=== PATIENT | female | born 1945 | race Asian ===

== ENCOUNTER 2016-10-05 11:24 | Outpatient (CLI) | payer OTHER | END 2016-10-05 19:30 | disposition home or self-care (01) | LOC: LABW 11:24 | DX: I48.1 Persistent atrial fibrillation (principal); Z79.01 Long term (current) use of anticoagulants; Z51.81 Encounter for therapeutic drug level monitoring | CPT/HCPCS: 36415; 85610 ==

== ENCOUNTER 2016-11-07 15:02 | Outpatient (CLI) | payer OTHER | END 2016-11-07 20:18 | disposition home or self-care (01) | LOC: LABW 15:02 | DX: I11.0 Hypertensive heart disease with heart failure (principal); I48.1 Persistent atrial fibrillation; Z79.01 Long term (current) use of anticoagulants; Z51.81 Encounter for therapeutic drug level monitoring | CPT/HCPCS: 36415; 83880; 85610 ==

== ENCOUNTER 2016-12-05 10:02 | Outpatient (CLI) | payer OTHER | END 2016-12-05 19:20 | disposition home or self-care (01) | LOC: LABW 10:02 | DX: I48.1 Persistent atrial fibrillation (principal); Z79.01 Long term (current) use of anticoagulants; Z51.81 Encounter for therapeutic drug level monitoring | CPT/HCPCS: 36415; 85610 ==

== ENCOUNTER 2017-01-04 11:13 | Outpatient (CLI) | payer OTHER | END 2017-01-04 19:06 | disposition home or self-care (01) | LOC: LABW 11:13 | DX: Z79.01 Long term (current) use of anticoagulants (principal); Z51.81 Encounter for therapeutic drug level monitoring; I48.1 Persistent atrial fibrillation | CPT/HCPCS: 36415; 85610 ==

== ENCOUNTER 2017-04-12 08:44 | Outpatient (CLI) | payer OTHER | END 2017-04-12 09:45 | disposition home or self-care (01) | LOC: LABW 08:44 | DX: Z79.01 Long term (current) use of anticoagulants (principal); I48.1 Persistent atrial fibrillation; Z51.81 Encounter for therapeutic drug level monitoring | CPT/HCPCS: 36415; 85610 ==

== ENCOUNTER 2017-05-10 08:55 | Outpatient (CLI) | payer OTHER | END 2017-05-10 10:00 | disposition home or self-care (01) | LOC: LABW 08:55 | DX: I48.1 Persistent atrial fibrillation (principal); Z79.01 Long term (current) use of anticoagulants; Z51.81 Encounter for therapeutic drug level monitoring | CPT/HCPCS: 36415; 85610 ==

== ENCOUNTER 2017-06-14 10:53 | Outpatient (CLI) | payer OTHER | END 2017-06-14 19:07 | disposition home or self-care (01) | LOC: LABW 10:53 | DX: I48.1 Persistent atrial fibrillation (principal); Z79.01 Long term (current) use of anticoagulants; Z51.81 Encounter for therapeutic drug level monitoring | CPT/HCPCS: 36415; 85610 ==

== ENCOUNTER 2017-07-12 09:09 | Outpatient (CLI) | payer OTHER | END 2017-07-12 10:10 | disposition home or self-care (01) | LOC: LABW 09:09 | DX: I48.1 Persistent atrial fibrillation (principal); Z79.01 Long term (current) use of anticoagulants; Z51.81 Encounter for therapeutic drug level monitoring | CPT/HCPCS: 36415; 85610 ==

== ENCOUNTER 2017-08-15 11:02 | Outpatient (CLI) | payer OTHER | END 2017-08-15 19:10 | disposition home or self-care (01) | LOC: LABW 11:02 | DX: I48.1 Persistent atrial fibrillation (principal); Z79.01 Long term (current) use of anticoagulants; Z51.81 Encounter for therapeutic drug level monitoring | CPT/HCPCS: 36415; 85610 ==

== ENCOUNTER 2017-09-13 11:03 | Outpatient (CLI) | payer OTHER | END 2017-09-13 19:04 | disposition home or self-care (01) | LOC: LABW 11:03 | DX: I48.1 Persistent atrial fibrillation (principal); Z79.01 Long term (current) use of anticoagulants; Z51.81 Encounter for therapeutic drug level monitoring | CPT/HCPCS: 36415; 85610 ==

== ENCOUNTER → 2017-10-11 10:38 | Outpatient (CLI) | payer OTHER | END | disposition home or self-care (01) | LOC: LABW 10:38 | DX: I48.91 Unspecified atrial fibrillation (principal) | CPT/HCPCS: 36415; 85610 ==

== ENCOUNTER 2017-11-15 10:37 | Outpatient (CLI) | payer OTHER | END 2017-11-15 21:40 | disposition home or self-care (01) | LOC: LABW 10:37 | DX: I48.91 Unspecified atrial fibrillation (principal) | CPT/HCPCS: 36415; 85610 ==

== ENCOUNTER 2017-12-13 10:47 | Outpatient (CLI) | payer OTHER | END 2017-12-13 18:12 | disposition home or self-care (01) | LOC: LABW 10:47 | DX: I48.91 Unspecified atrial fibrillation (principal) | CPT/HCPCS: 36415; 85610 ==

== ENCOUNTER 2018-01-10 09:36 | Outpatient (CLI) | payer OTHER | END 2018-01-10 21:46 | disposition home or self-care (01) | LOC: LABW 09:36 | DX: I48.91 Unspecified atrial fibrillation (principal) | CPT/HCPCS: 36415; 85610 ==

== ENCOUNTER 2018-02-07 10:12 | Outpatient (CLI) | payer OTHER | END 2018-02-07 20:32 | disposition home or self-care (01) | LOC: US 10:12 | DX: I48.91 Unspecified atrial fibrillation (principal); S86.891A Other injury of other muscle(s) and tendon(s) at lower leg level, right leg, initial encounter | CPT/HCPCS: 36415; 85610 ==

== ENCOUNTER 2018-05-01 09:07 | Outpatient (CLI) | payer OTHER | END 2018-05-01 19:58 | disposition home or self-care (01) | LOC: MAMMO 09:07 | DX: Z12.31 Encounter for screening mammogram for malignant neoplasm of breast (principal) ==

== ENCOUNTER 2018-06-05 08:36 | Outpatient (CLI) | payer OTHER ==
[2018-06-05 09:28] LABS: PLATELET COUNT 221 K/uL (152-353)
[2018-06-05 09:50] LABS: POTASSIUM 3.9 mmol/L (3.6-5.2)
== END 2018-06-05 22:25 | disposition home or self-care (01) ==
LOC: LABW 08:36
PROVIDERS: Nurse Practitioner
DX: Z11.59 Encounter for screening for other viral diseases (principal); I10 Essential (primary) hypertension; E78.00 Pure hypercholesterolemia, unspecified; E53.8 Deficiency of other specified B group vitamins; R53.83 Other fatigue
CPT/HCPCS: 36415; 80053; 80061; 82306; 82607; 84443; 85027; 86803

== ENCOUNTER 2018-07-11 09:00 | Outpatient (CLI) | payer OTHER | END 2018-07-11 20:56 | disposition home or self-care (01) | LOC: LABW 09:00 | DX: I48.91 Unspecified atrial fibrillation (principal) | CPT/HCPCS: 36415; 85610 ==

== ENCOUNTER 2018-08-06 08:54 | Outpatient (CLI) | payer OTHER | END 2018-08-06 19:42 | disposition home or self-care (01) | LOC: LABW 08:54 | DX: I48.91 Unspecified atrial fibrillation (principal) | CPT/HCPCS: 36415; 85610 ==

== ENCOUNTER 2018-09-05 10:21 | Outpatient (CLI) | payer OTHER | END 2018-09-05 19:22 | disposition home or self-care (01) | LOC: LABW 10:21 | DX: I48.91 Unspecified atrial fibrillation (principal) | CPT/HCPCS: 36415; 85610 ==

== ENCOUNTER 2018-10-08 09:55 | Outpatient (CLI) | payer OTHER | END 2018-10-08 22:11 | disposition home or self-care (01) | LOC: LABW 09:55 | DX: I48.91 Unspecified atrial fibrillation (principal) | CPT/HCPCS: 36415; 85610 ==

== ENCOUNTER 2018-11-05 15:48 | Outpatient (CLI) | payer OTHER | END 2018-11-05 20:06 | disposition home or self-care (01) | LOC: LABW 15:48 | DX: I48.91 Unspecified atrial fibrillation (principal) | CPT/HCPCS: 36415; 85610 ==

== ENCOUNTER 2018-12-05 09:04 | Outpatient (CLI) | payer OTHER | END 2018-12-05 23:15 | disposition home or self-care (01) | LOC: LABW 09:04 | DX: I48.91 Unspecified atrial fibrillation (principal) | CPT/HCPCS: 36415; 85610 ==

== ENCOUNTER 2019-01-02 13:19 | Outpatient (CLI) | payer OTHER | END 2019-01-02 23:46 | disposition home or self-care (01) | LOC: LABW 13:19 | DX: I48.91 Unspecified atrial fibrillation (principal) | CPT/HCPCS: 36415; 85610 ==

== ENCOUNTER 2019-02-05 09:37 | Outpatient (CLI) | payer OTHER | END 2019-02-05 19:20 | disposition home or self-care (01) | LOC: LABW 09:37 | DX: I48.91 Unspecified atrial fibrillation (principal) | CPT/HCPCS: 36415; 85610 ==

== ENCOUNTER 2019-03-06 10:56 | Outpatient (CLI) | payer OTHER | END 2019-03-06 23:38 | disposition home or self-care (01) | LOC: LABW 10:56 | DX: I48.91 Unspecified atrial fibrillation (principal) | CPT/HCPCS: 36415; 85610 ==

== ENCOUNTER 2019-04-04 08:32 | Outpatient (CLI) | payer OTHER | END 2019-04-04 23:02 | disposition home or self-care (01) | LOC: LABW 08:32 | DX: I48.91 Unspecified atrial fibrillation (principal) | CPT/HCPCS: 36415; 85610 ==

== ENCOUNTER 2019-05-02 09:43 | Outpatient (CLI) | payer OTHER | END 2019-05-02 23:59 | disposition home or self-care (01) | LOC: US 09:43 | DX: Z12.31 Encounter for screening mammogram for malignant neoplasm of breast (principal); R10.84 Generalized abdominal pain ==

== ENCOUNTER 2019-05-08 09:11 | Outpatient (CLI) | payer OTHER | END 2019-05-08 23:59 | LOC: LABW 09:11 | DX: I48.91 Unspecified atrial fibrillation (principal) | CPT/HCPCS: 36415; 85610 ==

== ENCOUNTER 2019-06-04 15:05 | Outpatient (CLI) | payer OTHER | END 2019-06-04 23:20 | disposition home or self-care (01) | LOC: LABW 15:05 | DX: I48.91 Unspecified atrial fibrillation (principal) | CPT/HCPCS: 36415; 85610 ==

== ENCOUNTER 2019-07-05 09:58 | Outpatient (CLI) | payer OTHER | END 2019-07-05 21:28 | disposition home or self-care (01) | LOC: LABW 09:58 | DX: I48.91 Unspecified atrial fibrillation (principal) | CPT/HCPCS: 36415; 85610 ==

== ENCOUNTER 2019-09-04 15:02 | Outpatient (CLI) | payer OTHER | END 2019-09-04 19:37 | disposition home or self-care (01) | LOC: LABW 15:02 | DX: I48.91 Unspecified atrial fibrillation (principal); Z79.01 Long term (current) use of anticoagulants | CPT/HCPCS: 36415; 85610 ==

== ENCOUNTER 2019-10-04 11:20 | Outpatient (CLI) | payer OTHER | END 2019-10-04 19:53 | disposition home or self-care (01) | LOC: LABW 11:20 | DX: I48.91 Unspecified atrial fibrillation (principal); Z79.01 Long term (current) use of anticoagulants | CPT/HCPCS: 36415; 85610 ==

== ENCOUNTER 2019-10-08 13:54 | Outpatient (CLI) | payer OTHER | END 2019-10-08 20:11 | disposition home or self-care (01) | LOC: RESP 13:54 | DX: R06.02 Shortness of breath (principal) | CPT/HCPCS: 93306 ==

== ENCOUNTER 2019-10-10 07:50 | Outpatient (CLI) | payer OTHER ==
[~2019-10-10] VITALS: Ht 172.7 cm; Wt 158.8 kg
[2019-10-10 09:22] LABS: POTASSIUM 3.6 mmol/L (3.6-5.2)
[2019-10-10 09:43] LABS: PLATELET COUNT 223 K/uL (152-353)
== END 2019-10-10 23:03 | disposition home or self-care (01) ==
LOC: LABW 07:50 → NM 07:50
PROVIDERS: Internal Medicine
DX: R06.02 Shortness of breath (principal); I50.9 Heart failure, unspecified; I48.0 Paroxysmal atrial fibrillation; I11.0 Hypertensive heart disease with heart failure
CPT/HCPCS: 36415; 80053; 80061; 82306; 84443; 85027; A9500; J2785

== ENCOUNTER 2019-11-06 11:17 | Outpatient (CLI) | payer OTHER | END 2019-11-06 21:17 | disposition home or self-care (01) | LOC: LABW 11:17 | DX: I48.0 Paroxysmal atrial fibrillation (principal); Z79.01 Long term (current) use of anticoagulants | CPT/HCPCS: 36415; 85610 ==

== ENCOUNTER 2019-11-13 17:22 | Outpatient (CLI) | payer OTHER | END 2019-11-13 19:32 | disposition home or self-care (01) | LOC: RAD 17:22 | DX: R05 Cough (principal); R09.3 Abnormal sputum ==

== ENCOUNTER 2019-12-03 13:10 | Outpatient (CLI) | payer OTHER | END 2019-12-03 19:06 | disposition home or self-care (01) | LOC: LABW 13:10 | PROVIDERS: Internal Medicine Cardiovascular Disease | DX: R06.09 Other forms of dyspnea (principal); Z79.899 Other long term (current) drug therapy; Z79.01 Long term (current) use of anticoagulants; I48.91 Unspecified atrial fibrillation | CPT/HCPCS: 36415; 80048; 83880; 85610 ==

== ENCOUNTER 2020-06-05 10:30 | Outpatient (CLI) | payer OTHER | END 2020-06-05 23:29 | disposition home or self-care (01) | LOC: RAD 10:30 | DX: M19.90 Unspecified osteoarthritis, unspecified site (principal); M54.41 Lumbago with sciatica, right side ==

== ENCOUNTER 2020-06-17 13:23 | Outpatient (CLI) | payer OTHER ==
[2020-06-17 14:06] LABS: PLATELET COUNT 204 K/uL (152-353)
[2020-06-17 14:57] LABS: POTASSIUM 3.5 mmol/L (3.6-5.2)
== END 2020-06-17 19:09 | disposition home or self-care (01) ==
LOC: LAB 13:23
PROVIDERS: Internal Medicine
DX: Z00.00 Encounter for general adult medical examination without abnormal findings (principal); I10 Essential (primary) hypertension; I48.91 Unspecified atrial fibrillation; E78.00 Pure hypercholesterolemia, unspecified; E55.9 Vitamin D deficiency, unspecified; Z79.01 Long term (current) use of anticoagulants; R53.83 Other fatigue
CPT/HCPCS: 80053; 80061; 82306; 84443; 85027; 85610

== ENCOUNTER 2020-06-22 09:30 | Outpatient (CLI) | payer OTHER | END 2020-06-22 23:40 | disposition home or self-care (01) | LOC: MAMMO 09:30 → LAB 09:30 → MAMMO 10:00 | DX: Z12.31 Encounter for screening mammogram for malignant neoplasm of breast (principal); Z79.01 Long term (current) use of anticoagulants; I48.91 Unspecified atrial fibrillation | CPT/HCPCS: 85610 ==

== ENCOUNTER 2020-06-29 09:36 | Outpatient (CLI) | payer OTHER | END 2020-06-29 19:10 | disposition home or self-care (01) | LOC: LABW 09:36 | DX: M25.542 Pain in joints of left hand (principal); M25.541 Pain in joints of right hand; Z79.01 Long term (current) use of anticoagulants; I48.91 Unspecified atrial fibrillation | CPT/HCPCS: 36415; 85610; 85651; 86038; 86140; 86430 ==

== ENCOUNTER 2020-07-03 10:29 | Outpatient (CLI) | payer OTHER | END 2020-07-03 22:25 | disposition home or self-care (01) | LOC: CT 10:29 | DX: M54.17 Radiculopathy, lumbosacral region (principal); M25.551 Pain in right hip ==

== ENCOUNTER 2020-07-29 13:24 | Outpatient (CLI) | payer OTHER | END 2020-07-29 19:51 | disposition home or self-care (01) | LOC: LAB 13:24 | PROVIDERS: ATTEND Internal Medicine | DX: Z79.01 Long term (current) use of anticoagulants (principal); I48.91 Unspecified atrial fibrillation | CPT/HCPCS: 85610 ==

== ENCOUNTER 2020-08-31 14:24 | Outpatient (CLI) | payer OTHER | END 2020-08-31 21:46 | disposition home or self-care (01) | LOC: LAB 14:24 | PROVIDERS: ATTEND Nurse Practitioner Family | DX: Z79.01 Long term (current) use of anticoagulants (principal) | CPT/HCPCS: 85610 ==

== ENCOUNTER 2020-11-11 11:31 | Outpatient (CLI) | payer OTHER | END 2020-11-11 19:38 | disposition home or self-care (01) | LOC: RAD 11:31 | PROVIDERS: ATTEND Internal Medicine Rheumatology | DX: M06.09 Rheumatoid arthritis without rheumatoid factor, multiple sites (principal) ==

== ENCOUNTER 2020-12-04 07:55 | Outpatient (CLI) | payer OTHER | END 2020-12-04 19:09 | disposition home or self-care (01) | LOC: CT 07:55 | PROVIDERS: ATTEND Internal Medicine Cardiovascular Disease | DX: R51.9 Headache, unspecified (principal) | CPT/HCPCS: 36415; 82565; 84520 ==

== ENCOUNTER 2021-08-31 16:23 | Outpatient (CLI) | payer OTHER ==
[2021-08-31 16:47] LABS: POTASSIUM 4.1 mmol/L (3.6-5.2)
== END 2021-08-31 19:12 | disposition home or self-care (01) ==
LOC: RAD 16:23
PROVIDERS: ATTEND Nurse Practitioner Family
DX: M79.641 Pain in right hand (principal); M25.531 Pain in right wrist; M25.431 Effusion, right wrist; M79.601 Pain in right arm; W19.XXXA Unspecified fall, initial encounter; Z79.899 Other long term (current) drug therapy; R79.89 Other specified abnormal findings of blood chemistry
CPT/HCPCS: 36415; 80048; 83880

== ENCOUNTER 2021-11-01 15:47 | Outpatient (CLI) | payer OTHER | END 2021-11-01 19:18 | disposition home or self-care (01) | LOC: LAB 15:47 | PROVIDERS: ATTEND Internal Medicine | DX: S81.802D Unspecified open wound, left lower leg, subsequent encounter (principal); S81.801D Unspecified open wound, right lower leg, subsequent encounter; Y92.9 Unspecified place or not applicable | CPT/HCPCS: 87070; 87077; 87186; 87205 ==

== ENCOUNTER 2021-11-15 14:05 | Outpatient (CLI) | payer OTHER ==
[2021-11-15 14:35] LABS: POTASSIUM 3.9 mmol/L (3.6-5.2)
[2021-11-15 14:49] LABS: PARTIAL THROMBOPLASTIN TIME 37.4 SECONDS (24.5-33.6)
== END 2021-11-15 18:56 | disposition home or self-care (01) ==
LOC: LAB 14:05
PROVIDERS: ATTEND Internal Medicine Cardiovascular Disease
DX: I13.0 Hypertensive heart and chronic kidney disease with heart failure and stage 1 through stage 4 chronic kidney disease, or unspecified chronic kidney disease (principal); N18.30 Chronic kidney disease, stage 3 unspecified; Z79.899 Other long term (current) drug therapy; Z79.01 Long term (current) use of anticoagulants
CPT/HCPCS: 80048; 85610; 85730

== ENCOUNTER 2021-12-20 12:28 | Outpatient (CLI) | payer OTHER ==
[2021-12-20 12:54] LABS: POTASSIUM 3.7 mmol/L (3.6-5.2)
== END 2021-12-20 19:11 | disposition home or self-care (01) ==
LOC: LAB 12:28
PROVIDERS: ATTEND Internal Medicine Cardiovascular Disease
DX: Z79.899 Other long term (current) drug therapy (principal); R06.09 Other forms of dyspnea
CPT/HCPCS: 80048; 83880

== ENCOUNTER 2021-12-30 11:16 | Outpatient (CLI) | payer OTHER ==
[2021-12-30 11:24] LABS: PLATELET COUNT 175 K/uL (152-353)
[2021-12-30 11:43] LABS: POTASSIUM 3.7 mmol/L (3.6-5.2)
== END 2021-12-30 21:27 | disposition home or self-care (01) ==
LOC: LAB 11:16
PROVIDERS: ATTEND Internal Medicine Cardiovascular Disease
DX: Z79.899 Other long term (current) drug therapy (principal); I10 Essential (primary) hypertension; Z79.01 Long term (current) use of anticoagulants; R42 Dizziness and giddiness; R06.09 Other forms of dyspnea
CPT/HCPCS: 80053; 83735; 83880; 84443; 85027

== ENCOUNTER 2022-01-03 15:18 | Emergency (ER) | payer OTHER ==
[~2022-01-03] VITALS: Ht 172.7 cm; Wt 178.9 kg
[2022-01-03 15:18] VITALS: TEMP 98.7
[2022-01-03 16:30] LABS: PLATELET COUNT 203 K/uL (152-353)
[2022-01-03 16:37] LABS: POTASSIUM 3.8 mmol/L (3.6-5.2)
[2022-01-03 18:30] VITALS: BP 144/34
== END 2022-01-03 18:56 | disposition short-term general hospital (02) ==
LOC: ED 15:18
PROVIDERS: Emergency Medicine Emergency Medical Services
DX: R00.1 Bradycardia, unspecified (principal); R06.02 Shortness of breath
CPT/HCPCS: 80053; 83735; 83880; 84484; 85027; 85610; 93005; 99284

== ENCOUNTER 2022-02-01 08:48 | Outpatient (CLI) | payer OTHER | END 2022-02-01 19:00 | disposition home or self-care (01) | LOC: MAMMO 08:48 | PROVIDERS: ATTEND Internal Medicine | DX: Z12.31 Encounter for screening mammogram for malignant neoplasm of breast (principal) ==

== ENCOUNTER 2022-04-25 08:53 | Outpatient (CLI) | payer OTHER ==
[2022-04-25 09:27] LABS: PLATELET COUNT 173 K/uL (152-353)
[2022-04-25 09:49] LABS: POTASSIUM 4.1 mmol/L (3.6-5.2)
== END 2022-04-25 18:56 | disposition home or self-care (01) ==
LOC: LABW 08:53
PROVIDERS: ATTEND Internal Medicine Nephrology
DX: E78.00 Pure hypercholesterolemia, unspecified (principal); G62.89 Other specified polyneuropathies; I48.91 Unspecified atrial fibrillation; M17.10 Unilateral primary osteoarthritis, unspecified knee; M51.17 Intervertebral disc disorders with radiculopathy, lumbosacral region; E66.01 Morbid (severe) obesity due to excess calories; N18.32 Chronic kidney disease, stage 3b; Z95.0 Presence of cardiac pacemaker; Z79.01 Long term (current) use of anticoagulants; Z28.21 Immunization not carried out because of patient refusal; I12.9 Hypertensive chronic kidney disease with stage 1 through stage 4 chronic kidney disease, or unspecified chronic kidney disease
CPT/HCPCS: 36415; 80069; 81002; 82306; 82570; 83970; 84156; 85027

== ENCOUNTER 2022-11-10 12:43 | Outpatient (CLI) | payer OTHER | END 2022-11-10 22:28 | disposition home or self-care (01) | LOC: RAD 12:43 | PROVIDERS: ATTEND Nurse Practitioner Family | DX: R29.898 Other symptoms and signs involving the musculoskeletal system (principal); M25.562 Pain in left knee; M25.561 Pain in right knee; R20.0 Anesthesia of skin ==

== ENCOUNTER 2022-11-17 10:06 | Outpatient (CLI) | payer OTHER | END 2022-11-17 19:18 | disposition home or self-care (01) | LOC: US 10:06 | PROVIDERS: ATTEND Nurse Practitioner Family | DX: I48.91 Unspecified atrial fibrillation (principal); E66.01 Morbid (severe) obesity due to excess calories; R06.02 Shortness of breath ==

== ENCOUNTER 2022-12-22 12:29 | Outpatient (CLI) | payer OTHER | END 2022-12-22 19:07 | disposition home or self-care (01) | LOC: US 12:29 | PROVIDERS: ATTEND Nurse Practitioner Family | DX: R94.6 Abnormal results of thyroid function studies (principal) ==

== ENCOUNTER 2023-06-01 09:55 | Outpatient (CLI) | payer OTHER | END 2023-06-01 18:40 | disposition home or self-care (01) | LOC: CT 09:55 | PROVIDERS: ATTEND Physician Assistant | DX: Z96.651 Presence of right artificial knee joint (principal); S80.01XA Contusion of right knee, initial encounter; Y92.89 Other specified places as the place of occurrence of the external cause ==